=== PATIENT | male | born 1970 | race Two or more races ===

== ENCOUNTER 2021-03-23 15:48 | Outpatient (CLI) | payer BC | END 2021-03-23 15:49 | disposition home or self-care (01) | LOC: CSHRAD 15:48 | PROVIDERS: ATTEND Family Medicine | DX: M79.671 Pain in right foot (principal); M77.31 Calcaneal spur, right foot ==

== ENCOUNTER 2022-05-03 11:36 | Outpatient (CLI) | payer BC | END 2022-05-03 11:37 | disposition home or self-care (01) | LOC: CSHRAD 11:36 | PROVIDERS: ATTEND Family Medicine | DX: M25.511 Pain in right shoulder (principal); M19.011 Primary osteoarthritis, right shoulder ==

== ENCOUNTER 2022-05-30 14:30 | Outpatient (CLI) | payer BC | END 2022-05-30 14:31 | disposition home or self-care (01) | LOC: CSHRAD 14:30 | PROVIDERS: ATTEND Family Medicine | DX: M25.519 Pain in unspecified shoulder (principal); M47.812 Spondylosis without myelopathy or radiculopathy, cervical region | CPT/HCPCS: 72040 ==